=== PATIENT | female | born 1995 | race Caucasian/White ===

== ENCOUNTER 2019-03-15 10:04 | Emergency (ER) | payer OTHER ==
[2019-03-15 10:31] VITALS: BP 135/55
--- NOTE | 2019-03-15 11:29 | UC ---
Throat Pain/Nasal Onur HPI - HPI Summary HPI Summary: Pt presents with c/o of "enlarged tonsils X 2 months". Pt was seen by PCP at home in [place] and told it was viral. Pt was given "steroid" and size of tonsils improved. Pt states that now the tonsils are enlarged and painful again. Has hx of [place]. - History of Current Complaint Chief Complaint: UCRespiratory Stated Complaint: SORE THROAT, SWO[place]EN GLANDS Time Seen by Provider: 03/15/19 11:20 Hx Obtained From: Patient Hx Last Menstrual Period: 03/05/19 ?: No Onset/Duration: Sudden Onset, Lasting Weeks - 12 weeks, Still Present Severity: Mild Pain Intensity: 1 Cough: None Associated Signs & Symptoms: Positive: Dysphagia - Epiglottits Risk Factors Epiglottis Risk Factors: Negative - Allergies/Home Medications Allergies/Adverse Reactions: Allergies Allergy/AdvReac Type Severity Reaction Status Date / Time Penicillins Allergy Runny Nose Verified 03/15/19 10:25 Home Medications: Home Medications Bcp 1 tab DAILY 03/15/19 [History] Mometasone 110 MCG MDI * [Asmanex 110 MCG MDI *] 2 puff INH BID 03/15/19 [ History Confirmed 03/15/19] PMH/Surg Hx/FS Hx/Imm Hx Previously Healthy: Yes - Surgical History Surgical History: None - Family History Known Family History: Positive: Hypertension - Social History Occupation: Student Lives: With Family Alcohol Use: Occasionally Substance Use Type: None Smoking Status (MU): Never Smoked Tobacco Have You Smoked in the Last Year: No - Immunization History Most Recent Tetanus Shot: 2008 Vaccination Up to Date: Yes Review of Systems All Other Systems Reviewed And Are Negative: Yes Constitutional: Positive: Fatigue Skin: Positive: Negative Eyes: Positive: Negative ENT: Positive: Sore Throat Respiratory: Positive: Negative Cardiovascular: Positive: Negative Gastrointestinal: Positive: Negative Genitourinary: Positive: Negative Motor: Positive: Negative Neurovascular: Positive: Negative Musculoskeletal: Positive: Negative Neurological: Positive: Negative Psychological: Positive: Negative Is Patient Immunocompromised?: No Physical Exam Triage Information Reviewed: Yes Appearance: Well-Appearing Vital Signs: Initial Vital Signs Temp 97.9 F 03/15/19 10:27 Pulse 74 03/15/19 10:27 Resp 16 03/15/19 10:27 BP 135/55 03/15/19 10:27 Pulse Ox 99 03/15/19 10:27 Vital Signs Reviewed: Yes Eye Exam: Normal ENT: Positive: Tonsillar swelling - tonsils are touching, pt denies snoring or difficulty swallowing. Dental Exam: Normal Neck exam: Normal Respiratory Exam: Normal Cardiovascular Exam: Normal Musculoskeletal Exam: Normal Neurological Exam: Normal Psychological Exam: Normal Skin Exam: Normal Throat Pain/Nasal Course/Dx - Differential Dx/Diagnosis Differential Diagnosis/HQI/PQRI: Mononucleosis, Tonsillitis Provider Diagnosis: Tonsillitis Discharge ED - Sign-Out/Discharge Documenting (check all that apply): Patient Departure All imaging exams completed and their final reports reviewed: No Studies - Discharge Plan Condition: Stable Disposition: HOME Prescriptions: predniSONE TAB* [Deltasone 10 MG TAB*] 30 mg PO DAILY #12 tab Patient Education Materials: Tonsillitis (ED) Referrals: [facility] [Outside] Hollis Byrd MD [Medical Doctor] - If Needed Landon Lott MD [Medical Doctor] - If Needed No Primary Care Phys,NOPCP [Primary Care Provider] - - Billing Disposition and Condition Condition: STABLE Disposition: Home - Attestation Statements Provider Attestation: Per institutional requirements, I have reviewed the chart, however, I was not consulted specifically or made aware of this patient by the midlevel provider. I did not personally evaluate, interact with , or disposition this patient.
== END 2019-03-15 11:38 | disposition home or self-care (01) ==
LOC: UCCORT 10:04
DX: J03.90 Acute tonsillitis, unspecified (principal); Z88.0 Allergy status to penicillin
CPT/HCPCS: 99212; G0463